=== PATIENT | male | born 1935 | race Caucasian/White ===

== ENCOUNTER 2017-11-13 17:34 | Inpatient (IN) | payer MEDICARE ==
[~2017-11-13] VITALS: Ht 182.9 cm; Wt 149.2 kg
[2017-11-13] MEDS ORDERED: BISACODYL 10 MG SUPP PR PRN (21:00)
[2017-11-13] MEDS ORDERED: POLYETHYLENE GLYCOL 17 GM PACKET PO PRN (21:00)
[2017-11-13] MEDS ORDERED: ONDANSETRON 2MG/ML, 2ML IVPush PRN (21:00)
[2017-11-13] MEDS ORDERED: MAGNESIUM SULFATE PMX 2GM/50ML 50 ML IV ONE (21:30)
[2017-11-13] MEDS ORDERED: PLEASE ENTER HEIGHT AND WEIGHT MC SCH (21:30)
[2017-11-13] MEDS ORDERED: PLEASE ENTER ALLERGIES MC SCH (21:30)
[2017-11-13 21:39] VITALS: BP 97/62
[2017-11-13] MEDS: SODIUM CHLORIDE FLUSH 10ML SYR IVF SCH (22:18)
[2017-11-13] MEDS: HEPARIN 5,000 UNITS/ML, 1ML SQ SCH (22:19)
[2017-11-14] VITALS (7 sets, daily range): BP systolic 84–111; BP diastolic 52–81
[2017-11-14] MEDS: HEPARIN 5,000 UNITS/ML, 1ML SQ SCH ×2 (05:26→13:11)
[2017-11-14] MEDS: CARVEDILOL 6.25 MG TABLET PO SCH ×2 (05:26→10:50)
[2017-11-14 05:42] LABS: CHLORIDE 101 mmol/L (98-107)
[2017-11-14 05:50] LABS: ALANINE AMINOTRANSFERASE 25 U/L (12-78); ALBUMIN 3.1 g/dL (3.4-5.0); ALKALINE PHOSPHATASE 76 U/L (45-117); ANION GAP 7 mmol/L (5-15); BILIRUBIN,TOTAL 2.3 mg/dL (0.2-1.0); CALCIUM 9.8 mg/dL (8.5-10.1); CREATININE 1.51 mg/dL (0.7-1.3); TOTAL PROTEIN 6.8 g/dL (6.4-8.2)
[2017-11-14] MEDS ORDERED: ASPIRIN 325 MG TABLET EC PO SCH (06:00)
[2017-11-14 06:10] LABS: BASOPHILS # (AUTO) 0.03 x10^3/uL (0-0.1); BASOPHILS % (AUTO) 1 % (0-1); EOSINOPHILS # (AUTO) 0.11 x10^3/uL (0-0.4); EOSINOPHILS % (AUTO) 2 % (1-7); LYMPHOCYTES % (AUTO) 18 % (22-44); MD SCAN; MEAN CORPUSCULAR HEMOGLOBIN 35.3 pg (27.5-34.5); MEAN CORPUSCULAR VOLUME 106.8 fL (81-97); MEAN PLATELET VOLUME 13.3 fL (7.4-10.4); MONOCYTES # (AUTO) 0.66 x10^3/uL (0.2-0.8); MONOCYTES % (AUTO) 10 % (2-9); NEUTROPHILS # (AUTO) 4.84 x10^3/uL (1.8-6.8); NEUTROPHILS % (AUTO) 71 % (42-75); PLATELET COUNT 86 x10^3/uL (130-400); RED BLOOD COUNT 3.65 x10^6/uL (4.38-5.82); RED CELL DISTRIBUTION WIDTH 17.4 % (9.4-14.8)
[2017-11-14] MEDS: LISINOPRIL 5 MG TABLET PO SCH (08:20)
[2017-11-14] MEDS: FUROSEMIDE 40 MG/4 ML IV SCH ×2 (08:20→16:50)
[2017-11-14] MEDS: SENNA/DOCUSATE TABLET PO SCH (08:20)
[2017-11-14] MEDS: SODIUM CHLORIDE FLUSH 10ML SYR IVF SCH ×2 (08:47→21:46)
[2017-11-14] MEDS ORDERED: FURO40TA6 PO (10:33)
[2017-11-14] MEDS ORDERED: CARV3.122 PO (10:33)
[2017-11-14] MEDS: INSULIN LISPRO 100 UNITS/ML, PEN SQ-INSULIN SCH ×2 (16:00→21:58)
[2017-11-14] MEDS: APIXABAN 5 MG TABLET PO SCH (21:46)
[2017-11-15] VITALS (8 sets, daily range): BP systolic 79–108; BP diastolic 43–66
[2017-11-15] MEDS: CARVEDILOL 6.25 MG TABLET PO SCH ×2 (05:05→18:27)
[2017-11-15 05:14] LABS: MEAN CORPUSCULAR HEMOGLOBIN 35.6 pg (27.5-34.5); MEAN CORPUSCULAR HGB CONC 33.2 g/dL (33.2-36.2); RED BLOOD COUNT 3.47 x10^6/uL (4.38-5.82); RED CELL DISTRIBUTION WIDTH 17.6 % (9.4-14.8)
[2017-11-15 05:18] LABS: ALANINE AMINOTRANSFERASE 26 U/L (12-78); ALBUMIN 2.9 g/dL (3.4-5.0); ANION GAP 6 mmol/L (5-15); CALCIUM 9.6 mg/dL (8.5-10.1); CHLORIDE 101 mmol/L (98-107); CREATININE 1.58 mg/dL (0.7-1.3)
[2017-11-15 05:34] LABS: HEMOGLOBIN A1C 6.5 % (4.2-6.3)
[2017-11-15 05:45] LABS: ALKALINE PHOSPHATASE 72 U/L (45-117); BILIRUBIN,TOTAL 1.6 mg/dL (0.2-1.0); TOTAL PROTEIN 6.2 g/dL (6.4-8.2)
[2017-11-15 05:59] LABS: BASOPHILS # (AUTO) 0.03 x10^3/uL (0-0.1); BASOPHILS % (AUTO) 1 % (0-1); EOSINOPHILS # (AUTO) 0.21 x10^3/uL (0-0.4); EOSINOPHILS % (AUTO) 4 % (1-7); LYMPHOCYTES # (AUTO) 1.14 x10^3/uL (1-3.4); LYMPHOCYTES % (AUTO) 21 % (22-44); MD SCAN; MEAN PLATELET VOLUME 13.2 fL (7.4-10.4); MONOCYTES # (AUTO) 0.49 x10^3/uL (0.2-0.8); MONOCYTES % (AUTO) 9 % (2-9); NEUTROPHILS # (AUTO) 3.47 x10^3/uL (1.8-6.8); NEUTROPHILS % (AUTO) 65 % (42-75); PLATELET COUNT 85 x10^3/uL (130-400)
[2017-11-15] MEDS: INSULIN LISPRO 100 UNITS/ML, PEN SQ-INSULIN SCH ×4 (07:56→21:05)
[2017-11-15] MEDS: SENNA/DOCUSATE TABLET PO SCH (08:47)
[2017-11-15] MEDS: APIXABAN 5 MG TABLET PO SCH ×2 (08:50→21:06)
[2017-11-15] MEDS: LISINOPRIL 5 MG TABLET PO SCH (08:51)
[2017-11-15] MEDS: THIAMINE 100MG TABLET PO SCH (08:52)
[2017-11-15] MEDS: FUROSEMIDE 40 MG/4 ML IV SCH (08:53)
[2017-11-15] MEDS: SODIUM CHLORIDE FLUSH 10ML SYR IVF SCH ×2 (09:00→19:49)
[2017-11-15] MEDS ORDERED: PHARMACY MAY ADJ FOR RENAL FX MC PRN (15:30)
[2017-11-15] MEDS ORDERED: SODIUM CHLORIDE 0.9%, 250ML IVBOLUS ONE (15:30)
[2017-11-15] MEDS ORDERED: CALCIUM CARBONATE 500 MG TAB.CHEW PO PRN (15:30)
[2017-11-15] MEDS: FUROSEMIDE 40 MG TABLET PO SCH (16:49)
[2017-11-16] VITALS (9 sets, daily range): BP systolic 80–103; BP diastolic 50–70
[2017-11-16 02:19] LABS: MICROSCOPIC INDICATED
[2017-11-16 02:27] LABS: CULTURE INDICATED? NO
[2017-11-16 03:49] LABS: ALANINE AMINOTRANSFERASE 29 U/L (12-78); ALBUMIN 2.7 g/dL (3.4-5.0); ANION GAP 7 mmol/L (5-15); CALCIUM 9.6 mg/dL (8.5-10.1); CHLORIDE 101 mmol/L (98-107); CREATININE 1.49 mg/dL (0.7-1.3)
[2017-11-16 03:50] LABS: MEAN CORPUSCULAR HEMOGLOBIN 36.4 pg (27.5-34.5); MEAN CORPUSCULAR HGB CONC 33.6 g/dL (33.2-36.2); MEAN CORPUSCULAR VOLUME 108.6 fL (81-97); MEAN PLATELET VOLUME 13.4 fL (7.4-10.4); PLATELET COUNT 94 x10^3/uL (130-400); RED CELL DISTRIBUTION WIDTH 17.7 % (9.4-14.8)
[2017-11-16 03:52] LABS: ALKALINE PHOSPHATASE 82 U/L (45-117); BILIRUBIN,TOTAL 1.3 mg/dL (0.2-1.0); TOTAL PROTEIN 6.2 g/dL (6.4-8.2)
[2017-11-16 04:15] LABS: BASOPHILS # (AUTO) 0.05 x10^3/uL (0-0.1); BASOPHILS % (AUTO) 1 % (0-1); EOSINOPHILS # (AUTO) 0.24 x10^3/uL (0-0.4); EOSINOPHILS % (AUTO) 4 % (1-7); LYMPHOCYTES # (AUTO) 1.13 x10^3/uL (1-3.4); LYMPHOCYTES % (AUTO) 18 % (22-44); MD SCAN; MONOCYTES # (AUTO) 0.58 x10^3/uL (0.2-0.8); MONOCYTES % (AUTO) 9 % (2-9); NEUTROPHILS # (AUTO) 4.41 x10^3/uL (1.8-6.8); NEUTROPHILS % (AUTO) 69 % (42-75)
[2017-11-16] MEDS: CARVEDILOL 6.25 MG TABLET PO SCH ×2 (05:59→17:50)
[2017-11-16] MEDS: INSULIN LISPRO 100 UNITS/ML, PEN SQ-INSULIN SCH ×4 (07:24→21:19)
[2017-11-16] MEDS: FUROSEMIDE 40 MG TABLET PO SCH (07:56)
[2017-11-16] MEDS ORDERED: FUROSEMIDE 20 MG TABLET ONE (07:59)
[2017-11-16] MEDS ORDERED: FUROSEMIDE 20 MG TABLET PO ONE (08:00)
[2017-11-16] MEDS: SENNA/DOCUSATE TABLET PO SCH (08:02)
[2017-11-16] MEDS: APIXABAN 5 MG TABLET PO SCH ×2 (08:05→21:16)
[2017-11-16] MEDS: PANTOPRAZOLE 20MG TABLET PO SCH (08:07)
[2017-11-16] MEDS: LISINOPRIL 5 MG TABLET PO SCH (08:08)
[2017-11-16] MEDS: THIAMINE 100MG TABLET PO SCH (08:12)
[2017-11-16] MEDS: SODIUM CHLORIDE FLUSH 10ML SYR IVF SCH ×2 (08:13→21:19)
[2017-11-16] MEDS ORDERED: BISACODYL 10 MG SUPP PR PRN (10:00)
[2017-11-16] MEDS: TAMSULOSIN 0.4 MG CAP.ER.24H PO SCH (11:31)
[2017-11-16] MEDS: POLYETHYLENE GLYCOL 17 GM PACKET PO SCH (11:31)
[2017-11-16] MEDS: ACETAMINOPHEN 325 MG TABLET PO PRN (15:37)
[2017-11-16 15:48] LABS: BILIRUBIN, DIRECT 0.7 mg/dL (0.1-0.2)
[2017-11-16 15:57] LABS: BILIRUBIN,INDIRECT 0.8 mg/dL (0.0-2.0); BILIRUBIN,TOTAL 1.5 mg/dL (0.2-1.0); THYROID STIMULATING HORMONE 4.48 mIU/L (0.358-3.740)
[2017-11-16] MEDS: FUROSEMIDE 20 MG TABLET PO SCH (17:50)
[2017-11-17 00:33] VITALS: BP 97/58
[2017-11-17 05:09] VITALS: BP 109/63
[2017-11-17] MEDS: CARVEDILOL 6.25 MG TABLET PO SCH ×2 (05:14→18:29)
[2017-11-17 05:45] LABS: CHLORIDE 101 mmol/L (98-107)
[2017-11-17 05:51] LABS: ALANINE AMINOTRANSFERASE 31 U/L (12-78); ALBUMIN 2.7 g/dL (3.4-5.0); ALKALINE PHOSPHATASE 72 U/L (45-117); ANION GAP 7 mmol/L (5-15); BILIRUBIN,TOTAL 1.8 mg/dL (0.2-1.0); CALCIUM 9.3 mg/dL (8.5-10.1); CREATININE 1.15 mg/dL (0.7-1.3); TOTAL PROTEIN 6.1 g/dL (6.4-8.2)
[2017-11-17 06:42] LABS: BASOPHILS # (AUTO) 0.03 x10^3/uL (0-0.1); BASOPHILS % (AUTO) 1 % (0-1); EOSINOPHILS # (AUTO) 0.15 x10^3/uL (0-0.4); EOSINOPHILS % (AUTO) 3 % (1-7); LYMPHOCYTES # (AUTO) 1.17 x10^3/uL (1-3.4); LYMPHOCYTES % (AUTO) 20 % (22-44); MD SCAN; MEAN CORPUSCULAR HEMOGLOBIN 36.3 pg (27.5-34.5); MEAN CORPUSCULAR HGB CONC 33.8 g/dL (33.2-36.2); MEAN CORPUSCULAR VOLUME 107.4 fL (81-97); MEAN PLATELET VOLUME 13.4 fL (7.4-10.4); MONOCYTES # (AUTO) 0.51 x10^3/uL (0.2-0.8); MONOCYTES % (AUTO) 9 % (2-9); NEUTROPHILS # (AUTO) 3.99 x10^3/uL (1.8-6.8); NEUTROPHILS % (AUTO) 68 % (42-75); PLATELET COUNT 87 x10^3/uL (130-400); RED BLOOD COUNT 3.45 x10^6/uL (4.38-5.82)
[2017-11-17] MEDS: INSULIN LISPRO 100 UNITS/ML, PEN SQ-INSULIN SCH ×4 (07:00→20:42)
[2017-11-17] MEDS ORDERED: FUROSEMIDE 20 MG TABLET PO SCH (07:30)
[2017-11-17] MEDS: POLYETHYLENE GLYCOL 17 GM PACKET PO SCH (09:00)
[2017-11-17] MEDS: SODIUM CHLORIDE FLUSH 10ML SYR IVF SCH ×2 (09:00→20:42)
[2017-11-17] MEDS: SENNA/DOCUSATE TABLET PO SCH (09:00)
[2017-11-17 09:02] LABS: INTERNATIONAL NORMALIZED RATIO 1.16 (0.93-1.1)
[2017-11-17 09:06] VITALS: BP 95/62
[2017-11-17 09:22] LABS: FOLATE LEVEL 11.6 ng/mL (3.1-17.5); FREE T4 (FREE THYROXINE) 1.07 ng/dL (0.76-1.46)
[2017-11-17] MEDS: TAMSULOSIN 0.4 MG CAP.ER.24H PO SCH (09:50)
[2017-11-17] MEDS: APIXABAN 5 MG TABLET PO SCH ×2 (09:50→20:42)
[2017-11-17] MEDS: PANTOPRAZOLE 20MG TABLET PO SCH (09:50)
[2017-11-17] MEDS: THIAMINE 100MG TABLET PO SCH (09:50)
[2017-11-17] MEDS: LISINOPRIL 5 MG TABLET PO SCH (09:50)
[2017-11-17] MEDS: FUROSEMIDE 20 MG TABLET PO SCH ×2 (09:55→18:29)
[2017-11-17 12:26] VITALS: BP 96/64
[2017-11-17 19:22] VITALS: BP 98/66
[2017-11-18 01:25] VITALS: BP 99/68
[2017-11-18] MEDS: CARVEDILOL 6.25 MG TABLET PO SCH ×2 (05:27→16:23)
[2017-11-18 05:38] LABS: ALANINE AMINOTRANSFERASE 33 U/L (12-78); ALBUMIN 2.6 g/dL (3.4-5.0); ANION GAP 4 mmol/L (5-15); CALCIUM 9.5 mg/dL (8.5-10.1); CHLORIDE 103 mmol/L (98-107); CREATININE 1.08 mg/dL (0.7-1.3)
[2017-11-18 05:40] LABS: ALKALINE PHOSPHATASE 75 U/L (45-117); BILIRUBIN,TOTAL 1.4 mg/dL (0.2-1.0)
[2017-11-18 06:19] LABS: BASOPHILS # (AUTO) 0.03 x10^3/uL (0-0.1); BASOPHILS % (AUTO) 1 % (0-1); EOSINOPHILS # (AUTO) 0.17 x10^3/uL (0-0.4); EOSINOPHILS % (AUTO) 3 % (1-7); LYMPHOCYTES # (AUTO) 0.98 x10^3/uL (1-3.4); LYMPHOCYTES % (AUTO) 19 % (22-44); MD SCAN; MEAN CORPUSCULAR HEMOGLOBIN 35.6 pg (27.5-34.5); MEAN CORPUSCULAR VOLUME 107.9 fL (81-97); MONOCYTES # (AUTO) 0.47 x10^3/uL (0.2-0.8); MONOCYTES % (AUTO) 9 % (2-9); NEUTROPHILS # (AUTO) 3.56 x10^3/uL (1.8-6.8); NEUTROPHILS % (AUTO) 68 % (42-75); PLATELET COUNT 76 x10^3/uL (130-400); RED BLOOD COUNT 3.36 x10^6/uL (4.38-5.82); RED CELL DISTRIBUTION WIDTH 17.2 % (9.4-14.8)
[2017-11-18 06:50] VITALS: BP 89/49
[2017-11-18] MEDS: INSULIN LISPRO 100 UNITS/ML, PEN SQ-INSULIN SCH ×4 (07:00→21:24)
[2017-11-18] MEDS: FUROSEMIDE 20 MG TABLET PO SCH (07:30)
[2017-11-18] MEDS ORDERED: SODIUM CHLORIDE 0.9%, 250ML IVBOLUS ONE (07:30)
[2017-11-18] MEDS: SENNA/DOCUSATE TABLET PO SCH (08:22)
[2017-11-18] MEDS: LISINOPRIL 5 MG TABLET PO SCH (08:22)
[2017-11-18] MEDS: SODIUM CHLORIDE FLUSH 10ML SYR IVF SCH ×2 (08:22→21:23)
[2017-11-18] MEDS: TAMSULOSIN 0.4 MG CAP.ER.24H PO SCH (08:22)
[2017-11-18] MEDS: APIXABAN 5 MG TABLET PO SCH (08:22)
[2017-11-18] MEDS: THIAMINE 100MG TABLET PO SCH (08:22)
[2017-11-18] MEDS: POLYETHYLENE GLYCOL 17 GM PACKET PO SCH (08:22)
[2017-11-18] MEDS: PANTOPRAZOLE 20MG TABLET PO SCH (08:22)
[2017-11-18 08:30] VITALS: BP 65/51
[2017-11-18 09:07] LABS: TROPONIN I 0.016 ng/mL (0.000-0.045)
[2017-11-18] MEDS ORDERED: DOBUTAMINE 250 MG in SODIUM CHLORIDE 0.9% 230 ML IV SCH (09:30)
[2017-11-18] MEDS ORDERED: MAGNESIUM SULFATE 1 GM in SODIUM CHLORIDE 0.9% 50 ML IV ONE (10:00)
[2017-11-18] MEDS: NOREPINEPHRINE 4 MG in SODIUM CHLORIDE 0.9% 246 ML IV PRN (21:34)
[2017-11-19 04:32] LABS: ALANINE AMINOTRANSFERASE 37 U/L (12-78); ALBUMIN 2.7 g/dL (3.4-5.0); ANION GAP 5 mmol/L (5-15); CALCIUM 9.4 mg/dL (8.5-10.1); CHLORIDE 103 mmol/L (98-107)
[2017-11-19 04:35] LABS: ALKALINE PHOSPHATASE 89 U/L (45-117); BILIRUBIN,TOTAL 1.6 mg/dL (0.2-1.0); CREATININE 0.98 mg/dL (0.7-1.3); TOTAL PROTEIN 6.4 g/dL (6.4-8.2)
[2017-11-19 05:42] LABS: MEAN CORPUSCULAR HEMOGLOBIN 34.8 pg (27.5-34.5); MEAN CORPUSCULAR HGB CONC 32.4 g/dL (33.2-36.2); MEAN CORPUSCULAR VOLUME 107.4 fL (81-97); PLATELET COUNT 95 x10^3/uL (130-400); RED BLOOD COUNT 3.64 x10^6/uL (4.38-5.82); RED CELL DISTRIBUTION WIDTH 17.5 % (9.4-14.8)
[2017-11-19 05:43] LABS: BASOPHILS # (AUTO) 0.04 x10^3/uL (0-0.1); BASOPHILS % (AUTO) 1 % (0-1); EOSINOPHILS # (AUTO) 0.15 x10^3/uL (0-0.4); EOSINOPHILS % (AUTO) 2 % (1-7); LYMPHOCYTES # (AUTO) 0.98 x10^3/uL (1-3.4); LYMPHOCYTES % (AUTO) 15 % (22-44); MD SCAN; MONOCYTES # (AUTO) 0.53 x10^3/uL (0.2-0.8); MONOCYTES % (AUTO) 8 % (2-9); NEUTROPHILS # (AUTO) 4.94 x10^3/uL (1.8-6.8); NEUTROPHILS % (AUTO) 75 % (42-75)
[2017-11-19] MEDS: CARVEDILOL 6.25 MG TABLET PO SCH (06:00)
[2017-11-19] MEDS: INSULIN LISPRO 100 UNITS/ML, PEN SQ-INSULIN SCH ×4 (07:00→21:18)
[2017-11-19] MEDS: PANTOPRAZOLE 20MG TABLET PO SCH (07:43)
[2017-11-19] MEDS: TAMSULOSIN 0.4 MG CAP.ER.24H PO SCH (07:43)
[2017-11-19] MEDS: FUROSEMIDE 100 MG in SODIUM CHLORIDE 0.9% 90 ML IV SCH (07:43)
[2017-11-19] MEDS: THIAMINE 100MG TABLET PO SCH (07:45)
[2017-11-19] MEDS: SENNA/DOCUSATE TABLET PO SCH (08:47)
[2017-11-19] MEDS: POLYETHYLENE GLYCOL 17 GM PACKET PO SCH (08:47)
[2017-11-19] MEDS: NOREPINEPHRINE 4 MG in SODIUM CHLORIDE 0.9% 246 ML IV PRN (11:58)
[2017-11-19] MEDS: SODIUM CHLORIDE FLUSH 10ML SYR IVF SCH ×2 (12:17→21:00)
[2017-11-20] MEDS: FUROSEMIDE 100 MG in SODIUM CHLORIDE 0.9% 90 ML IV SCH ×2 (04:56→20:28)
[2017-11-20 05:02] LABS: ANION GAP 5 mmol/L (5-15); CALCIUM 9.3 mg/dL (8.5-10.1); CHLORIDE 103 mmol/L (98-107)
[2017-11-20 05:04] LABS: CREATININE 1.09 mg/dL (0.7-1.3)
[2017-11-20] MEDS: INSULIN LISPRO 100 UNITS/ML, PEN SQ-INSULIN SCH ×4 (07:00→21:17)
[2017-11-20] MEDS: TAMSULOSIN 0.4 MG CAP.ER.24H PO SCH (08:46)
[2017-11-20] MEDS: THIAMINE 100MG TABLET PO SCH (08:46)
[2017-11-20] MEDS: PANTOPRAZOLE 20MG TABLET PO SCH (08:46)
[2017-11-20] MEDS: SENNA/DOCUSATE TABLET PO SCH (08:46)
[2017-11-20] MEDS: POLYETHYLENE GLYCOL 17 GM PACKET PO SCH (08:46)
[2017-11-20] MEDS: SODIUM CHLORIDE FLUSH 10ML SYR IVF SCH ×2 (08:47→21:00)
[2017-11-20] MEDS ORDERED: HEPARIN 5,000 UNITS/ML, 1ML IV PRN (10:30)
[2017-11-20] MEDS ORDERED: HEPARIN 5,000 UNITS/ML, 1ML IV ONE (10:30)
[2017-11-20] MEDS: HEPARIN 25,000 UNITS/500ML PMX 500 ML IV PRN (17:07)
[2017-11-20] MEDS ORDERED: SODIUM CHLORIDE 0.9%, 250ML IVBOLUS ONE (23:30)
[2017-11-21 04:26] LABS: MEAN CORPUSCULAR HGB CONC 33.5 g/dL (33.2-36.2); MEAN CORPUSCULAR VOLUME 107.4 fL (81-97); MEAN PLATELET VOLUME 11.9 fL (7.4-10.4); PLATELET COUNT 76 x10^3/uL (130-400); RED BLOOD COUNT 3.45 x10^6/uL (4.38-5.82); RED CELL DISTRIBUTION WIDTH 17.2 % (9.4-14.8)
[2017-11-21 04:31] LABS: ALANINE AMINOTRANSFERASE 37 U/L (12-78); ALBUMIN 2.7 g/dL (3.4-5.0); ANION GAP 3 mmol/L (5-15); CALCIUM 9.5 mg/dL (8.5-10.1); CHLORIDE 103 mmol/L (98-107); CREATININE 1.13 mg/dL (0.7-1.3)
[2017-11-21 04:34] LABS: ALKALINE PHOSPHATASE 91 U/L (45-117); BILIRUBIN,TOTAL 1.5 mg/dL (0.2-1.0); TOTAL PROTEIN 6.4 g/dL (6.4-8.2)
[2017-11-21 04:50] LABS: BASOPHILS # (AUTO) 0.05 x10^3/uL (0-0.1); BASOPHILS % (AUTO) 1 % (0-1); EOSINOPHILS # (AUTO) 0.16 x10^3/uL (0-0.4); EOSINOPHILS % (AUTO) 4 % (1-7); LYMPHOCYTES # (AUTO) 1.25 x10^3/uL (1-3.4); LYMPHOCYTES % (AUTO) 29 % (22-44); MD SCAN; MONOCYTES # (AUTO) 0.52 x10^3/uL (0.2-0.8); MONOCYTES % (AUTO) 12 % (2-9); NEUTROPHILS # (AUTO) 2.28 x10^3/uL (1.8-6.8); NEUTROPHILS % (AUTO) 54 % (42-75)
[2017-11-21] MEDS: INSULIN LISPRO 100 UNITS/ML, PEN SQ-INSULIN SCH ×4 (07:00→21:00)
[2017-11-21] MEDS: THIAMINE 100MG TABLET PO SCH (08:52)
[2017-11-21] MEDS: TAMSULOSIN 0.4 MG CAP.ER.24H PO SCH (08:52)
[2017-11-21] MEDS: PANTOPRAZOLE 20MG TABLET PO SCH (08:52)
[2017-11-21] MEDS: SODIUM CHLORIDE FLUSH 10ML SYR IVF SCH ×2 (08:54→21:24)
[2017-11-21] MEDS: POLYETHYLENE GLYCOL 17 GM PACKET PO SCH (09:00)
[2017-11-21] MEDS: SENNA/DOCUSATE TABLET PO SCH (09:00)
[2017-11-21] MEDS: FUROSEMIDE 20 MG/2 ML IV SCH ×2 (10:37→17:24)
[2017-11-21] MEDS: HEPARIN 25,000 UNITS/500ML PMX 500 ML IV PRN (14:33)
[2017-11-22 05:04] LABS: ANION GAP 6 mmol/L (5-15); CALCIUM 9.8 mg/dL (8.5-10.1); CHLORIDE 100 mmol/L (98-107); CREATININE 1.29 mg/dL (0.7-1.3)
[2017-11-22] MEDS: INSULIN LISPRO 100 UNITS/ML, PEN SQ-INSULIN SCH ×4 (07:00→21:00)
[2017-11-22] MEDS ORDERED: DIGOXIN 0.25 MG/ML, 2ML IVPush ONE (08:30)
[2017-11-22] MEDS ORDERED: DIGOXIN 0.25 MG/ML, 2ML ONE (08:33)
[2017-11-22] MEDS: POLYETHYLENE GLYCOL 17 GM PACKET PO SCH (09:00)
[2017-11-22] MEDS: FUROSEMIDE 20 MG/2 ML IV SCH ×2 (09:06→18:35)
[2017-11-22] MEDS: THIAMINE 100MG TABLET PO SCH (09:07)
[2017-11-22] MEDS: PANTOPRAZOLE 20MG TABLET PO SCH (09:07)
[2017-11-22] MEDS: SENNA/DOCUSATE TABLET PO SCH (09:07)
[2017-11-22] MEDS: TAMSULOSIN 0.4 MG CAP.ER.24H PO SCH (09:07)
[2017-11-22] MEDS: SODIUM CHLORIDE FLUSH 10ML SYR IVF SCH ×2 (09:08→21:26)
[2017-11-22 16:32] VITALS: BP 95/60
[2017-11-23 02:30] VITALS: BP 88/61
[2017-11-23 03:39] LABS: ANION GAP 4 mmol/L (5-15); CALCIUM 9.3 mg/dL (8.5-10.1); CHLORIDE 101 mmol/L (98-107); CREATININE 1.17 mg/dL (0.7-1.3)
[2017-11-23] MEDS: INSULIN LISPRO 100 UNITS/ML, PEN SQ-INSULIN SCH ×4 (07:00→21:00)
[2017-11-23] MEDS: SODIUM CHLORIDE FLUSH 10ML SYR IVF SCH ×2 (07:54→21:15)
[2017-11-23] MEDS: PANTOPRAZOLE 20MG TABLET PO SCH (07:54)
[2017-11-23] MEDS: POLYETHYLENE GLYCOL 17 GM PACKET PO SCH (07:54)
[2017-11-23] MEDS: FUROSEMIDE 20 MG/2 ML IV SCH ×2 (07:54→17:48)
[2017-11-23 07:57] VITALS: BP 115/72
[2017-11-23] MEDS: THIAMINE 100MG TABLET PO SCH (08:02)
[2017-11-23] MEDS: SENNA/DOCUSATE TABLET PO SCH (08:02)
[2017-11-23] MEDS: TAMSULOSIN 0.4 MG CAP.ER.24H PO SCH (08:02)
[2017-11-23 13:20] VITALS: BP 93/59
[2017-11-23 14:31] VITALS: BP 104/66
[2017-11-23 20:07] VITALS: BP 102/69
[2017-11-24 02:32] VITALS: BP 105/66
[2017-11-24 06:00] LABS: ALBUMIN 2.7 g/dL (3.4-5.0); ANION GAP 8 mmol/L (5-15); CALCIUM 9.7 mg/dL (8.5-10.1); CHLORIDE 102 mmol/L (98-107)
[2017-11-24 06:04] LABS: ALANINE AMINOTRANSFERASE 36 U/L (12-78); ALKALINE PHOSPHATASE 84 U/L (45-117); BILIRUBIN,TOTAL 1.7 mg/dL (0.2-1.0); CREATININE 1.07 mg/dL (0.7-1.3); TOTAL PROTEIN 6.3 g/dL (6.4-8.2)
[2017-11-24 06:58] LABS: BASOPHILS # (AUTO) 0.03 x10^3/uL (0-0.1); BASOPHILS % (AUTO) 1 % (0-1); EOSINOPHILS # (AUTO) 0.15 x10^3/uL (0-0.4); EOSINOPHILS % (AUTO) 4 % (1-7); LYMPHOCYTES # (AUTO) 1.04 x10^3/uL (1-3.4); LYMPHOCYTES % (AUTO) 25 % (22-44); MD SCAN; MEAN CORPUSCULAR HEMOGLOBIN 35.1 pg (27.5-34.5); MEAN CORPUSCULAR HGB CONC 32.7 g/dL (33.2-36.2); MEAN CORPUSCULAR VOLUME 107.3 fL (81-97); MEAN PLATELET VOLUME 11.3 fL (7.4-10.4); MONOCYTES # (AUTO) 0.46 x10^3/uL (0.2-0.8); MONOCYTES % (AUTO) 11 % (2-9); NEUTROPHILS # (AUTO) 2.51 x10^3/uL (1.8-6.8); NEUTROPHILS % (AUTO) 60 % (42-75); RED CELL DISTRIBUTION WIDTH 17.3 % (9.4-14.8)
[2017-11-24 07:00] LABS: PLATELET COUNT 47 x10^3/uL (130-400)
[2017-11-24] MEDS: INSULIN LISPRO 100 UNITS/ML, PEN SQ-INSULIN SCH ×4 (07:00→21:00)
[2017-11-24] MEDS: FUROSEMIDE 20 MG/2 ML IV SCH ×2 (08:12→16:53)
[2017-11-24] MEDS: PANTOPRAZOLE 20MG TABLET PO SCH (08:13)
[2017-11-24] MEDS: SODIUM CHLORIDE FLUSH 10ML SYR IVF SCH ×2 (08:13→21:40)
[2017-11-24] MEDS: TAMSULOSIN 0.4 MG CAP.ER.24H PO SCH (08:13)
[2017-11-24] MEDS: THIAMINE 100MG TABLET PO SCH (08:13)
[2017-11-24] MEDS: POLYETHYLENE GLYCOL 17 GM PACKET PO SCH (08:13)
[2017-11-24] MEDS: SENNA/DOCUSATE TABLET PO SCH (08:13)
[2017-11-24 08:14] VITALS: BP 116/75
[2017-11-24 09:23] LABS: HIT RESULT NEGATIVE (NEGATIVE)
[2017-11-24 14:54] VITALS: BP 112/71
[2017-11-24 19:01] VITALS: BP 115/76
[2017-11-24] MEDS: ACETAMINOPHEN 325 MG TABLET PO PRN (21:40)
[2017-11-25 03:35] VITALS: BP 105/65
[2017-11-25 06:51] LABS: MEAN CORPUSCULAR HEMOGLOBIN 35.5 pg (27.5-34.5); MEAN CORPUSCULAR VOLUME 107.7 fL (81-97); RED BLOOD COUNT 3.25 x10^6/uL (4.38-5.82); RED CELL DISTRIBUTION WIDTH 17.2 % (9.4-14.8)
[2017-11-25 07:00] LABS: ANION GAP 5 mmol/L (5-15); CALCIUM 9.6 mg/dL (8.5-10.1); CHLORIDE 103 mmol/L (98-107); CREATININE 1.21 mg/dL (0.7-1.3)
[2017-11-25] MEDS: INSULIN LISPRO 100 UNITS/ML, PEN SQ-INSULIN SCH ×4 (07:00→21:00)
[2017-11-25 07:15] VITALS: BP 105/75
[2017-11-25 07:21] LABS: BASOPHILS # (AUTO) 0.03 x10^3/uL (0-0.1); BASOPHILS % (AUTO) 1 % (0-1); EOSINOPHILS # (AUTO) 0.16 x10^3/uL (0-0.4); EOSINOPHILS % (AUTO) 4 % (1-7); LYMPHOCYTES # (AUTO) 0.94 x10^3/uL (1-3.4); LYMPHOCYTES % (AUTO) 21 % (22-44); MD MORPH REVIEW ONLY; MEAN PLATELET VOLUME 11.5 fL (7.4-10.4); MONOCYTES # (AUTO) 0.37 x10^3/uL (0.2-0.8); MONOCYTES % (AUTO) 8 % (2-9); NEUTROPHILS # (AUTO) 2.95 x10^3/uL (1.8-6.8); NEUTROPHILS % (AUTO) 66 % (42-75); PLATELET COUNT 52 x10^3/uL (130-400)
[2017-11-25 07:24] LABS: <PLATELET ESTIMATE> DECREASED; <PLT MORPHOLOGY> NORMAL PLT MORPH; ANISOCYTOSIS 1+; OVALOCYTES 1+
[2017-11-25] MEDS: POLYETHYLENE GLYCOL 17 GM PACKET PO SCH (09:00)
[2017-11-25] MEDS: PANTOPRAZOLE 20MG TABLET PO SCH (09:09)
[2017-11-25] MEDS: TAMSULOSIN 0.4 MG CAP.ER.24H PO SCH (09:09)
[2017-11-25] MEDS: THIAMINE 100MG TABLET PO SCH (09:09)
[2017-11-25] MEDS: SODIUM CHLORIDE FLUSH 10ML SYR IVF SCH ×2 (09:09→21:31)
[2017-11-25] MEDS: SENNA/DOCUSATE TABLET PO SCH (09:09)
[2017-11-25] MEDS: FUROSEMIDE 20 MG/2 ML IV SCH (09:09)
[2017-11-25 12:46] VITALS: BP 123/69
[2017-11-25] MEDS: LACTOBACILLUS CHEW TABLET PO SCH ×2 (16:25→21:32)
[2017-11-25 17:30] VITALS: BP 99/70
[2017-11-25] MEDS: FUROSEMIDE 20 MG TABLET PO SCH (18:03)
[2017-11-25] MEDS: CARVEDILOL 3.125 MG TABLET PO SCH (18:04)
[2017-11-25 19:19] VITALS: BP 123/69
[2017-11-26 02:30] VITALS: BP 117/85
[2017-11-26] MEDS: CARVEDILOL 3.125 MG TABLET PO SCH ×2 (05:24→17:42)
[2017-11-26 06:06] LABS: % IRON SATURATION 24 % (20-55); IRON LEVEL 63 mcg/dL (65-175); TOTAL IRON BINDING CAPACITY 258 mcg/dL (250-450)
[2017-11-26 06:57] VITALS: BP 108/72
[2017-11-26] MEDS: INSULIN LISPRO 100 UNITS/ML, PEN SQ-INSULIN SCH ×4 (07:00→20:10)
[2017-11-26] MEDS: POLYETHYLENE GLYCOL 17 GM PACKET PO SCH (07:44)
[2017-11-26] MEDS: SODIUM CHLORIDE FLUSH 10ML SYR IVF SCH ×2 (09:00→20:08)
[2017-11-26] MEDS: SENNA/DOCUSATE TABLET PO SCH (09:00)
[2017-11-26] MEDS: THIAMINE 100MG TABLET PO SCH (09:54)
[2017-11-26] MEDS: LACTOBACILLUS CHEW TABLET PO SCH ×3 (09:54→20:07)
[2017-11-26] MEDS: FUROSEMIDE 20 MG TABLET PO SCH ×2 (09:54→17:56)
[2017-11-26] MEDS: ACETAMINOPHEN 325 MG TABLET PO PRN (09:54)
[2017-11-26] MEDS: PANTOPRAZOLE 20MG TABLET PO SCH (09:54)
[2017-11-26] MEDS: TAMSULOSIN 0.4 MG CAP.ER.24H PO SCH (09:54)
[2017-11-26] MEDS: ACETYLCYSTEINE 600 MG CAPSULE PO SCH ×2 (11:37→20:07)
[2017-11-26 14:05] VITALS: BP 114/71
[2017-11-26] MEDS ORDERED: HALOPERIDOL 5 MG/ML IV PRN (16:30)
[2017-11-26 19:46] VITALS: BP 120/71
[2017-11-27 01:20] VITALS: BP 112/66
[2017-11-27 05:44] LABS: ANION GAP 7 mmol/L (5-15); CALCIUM 9.9 mg/dL (8.5-10.1); CHLORIDE 102 mmol/L (98-107)
[2017-11-27 05:47] LABS: CREATININE 1.05 mg/dL (0.7-1.3)
[2017-11-27 05:49] LABS: MICROSCOPIC INDICATED
[2017-11-27 05:54] LABS: CULTURE INDICATED? NO
[2017-11-27] MEDS: CARVEDILOL 3.125 MG TABLET PO SCH ×2 (06:20→17:22)
[2017-11-27 06:40] LABS: BASOPHILS # (AUTO) 0.05 x10^3/uL (0-0.1); BASOPHILS % (AUTO) 1 % (0-1); EOSINOPHILS # (AUTO) 0.16 x10^3/uL (0-0.4); EOSINOPHILS % (AUTO) 3 % (1-7); LYMPHOCYTES # (AUTO) 0.88 x10^3/uL (1-3.4); LYMPHOCYTES % (AUTO) 16 % (22-44); MD SCAN; MEAN CORPUSCULAR HEMOGLOBIN 35.7 pg (27.5-34.5); MEAN CORPUSCULAR HGB CONC 33.1 g/dL (33.2-36.2); MEAN CORPUSCULAR VOLUME 107.9 fL (81-97); MEAN PLATELET VOLUME 12.4 fL (7.4-10.4); MONOCYTES # (AUTO) 0.58 x10^3/uL (0.2-0.8); MONOCYTES % (AUTO) 11 % (2-9); NEUTROPHILS # (AUTO) 3.79 x10^3/uL (1.8-6.8); NEUTROPHILS % (AUTO) 70 % (42-75); PLATELET COUNT 54 x10^3/uL (130-400); RED BLOOD COUNT 3.23 x10^6/uL (4.38-5.82); RED CELL DISTRIBUTION WIDTH 17.1 % (9.4-14.8)
[2017-11-27] MEDS: INSULIN LISPRO 100 UNITS/ML, PEN SQ-INSULIN SCH ×4 (07:11→20:23)
[2017-11-27 07:46] VITALS: BP 92/53
[2017-11-27] MEDS: FUROSEMIDE 20 MG TABLET PO SCH ×2 (08:17→17:22)
[2017-11-27] MEDS: TAMSULOSIN 0.4 MG CAP.ER.24H PO SCH (08:17)
[2017-11-27] MEDS: THIAMINE 100MG TABLET PO SCH (08:17)
[2017-11-27] MEDS: ACETYLCYSTEINE 600 MG CAPSULE PO SCH ×2 (08:17→20:22)
[2017-11-27] MEDS: LACTOBACILLUS CHEW TABLET PO SCH ×3 (08:17→20:22)
[2017-11-27] MEDS: SODIUM CHLORIDE FLUSH 10ML SYR IVF SCH ×2 (08:18→20:23)
[2017-11-27] MEDS: POLYETHYLENE GLYCOL 17 GM PACKET PO SCH (08:18)
[2017-11-27] MEDS: PANTOPRAZOLE 20MG TABLET PO SCH (08:18)
[2017-11-27] MEDS: SENNA/DOCUSATE TABLET PO SCH (08:18)
[2017-11-27 10:34] LABS: ALBUMIN 2.7 g/dL (3.4-5.0); ANION GAP 6 mmol/L (5-15); CALCIUM 9.8 mg/dL (8.5-10.1); CHLORIDE 102 mmol/L (98-107)
[2017-11-27 10:35] LABS: CREATININE 1.07 mg/dL (0.7-1.3)
[2017-11-27 15:19] VITALS: BP 114/85
[2017-11-27 17:21] VITALS: BP 122/87
[2017-11-27 18:54] VITALS: BP 105/68
[2017-11-28 01:02] VITALS: BP 112/70
[2017-11-28] MEDS: ACETAMINOPHEN 325 MG TABLET PO PRN (04:42)
[2017-11-28] MEDS: CARVEDILOL 3.125 MG TABLET PO SCH ×2 (06:01→17:31)
[2017-11-28] MEDS: INSULIN LISPRO 100 UNITS/ML, PEN SQ-INSULIN SCH ×4 (07:00→21:00)
[2017-11-28 07:17] VITALS: BP 116/74
[2017-11-28] MEDS: PANTOPRAZOLE 20MG TABLET PO SCH (08:14)
[2017-11-28] MEDS: TAMSULOSIN 0.4 MG CAP.ER.24H PO SCH (08:14)
[2017-11-28] MEDS: FUROSEMIDE 20 MG TABLET PO SCH ×2 (08:14→17:31)
[2017-11-28] MEDS: THIAMINE 100MG TABLET PO SCH (08:15)
[2017-11-28] MEDS: SENNA/DOCUSATE TABLET PO SCH (08:16)
[2017-11-28] MEDS: POLYETHYLENE GLYCOL 17 GM PACKET PO SCH (08:16)
[2017-11-28] MEDS: SODIUM CHLORIDE FLUSH 10ML SYR IVF SCH ×2 (08:16→21:46)
[2017-11-28] MEDS: ACETYLCYSTEINE 600 MG CAPSULE PO SCH ×2 (08:16→21:46)
[2017-11-28] MEDS: LACTOBACILLUS CHEW TABLET PO SCH ×3 (08:16→21:46)
[2017-11-28] MEDS ORDERED: ACET325T14 PO (13:18)
[2017-11-28] MEDS ORDERED: CALC200T24 PO (13:18)
[2017-11-28] MEDS ORDERED: THIA100T67 PO (13:18)
[2017-11-28] MEDS ORDERED: FURO20TA3 PO (13:18)
[2017-11-28] MEDS ORDERED: TAMS-11 PO (13:18)
[2017-11-28] MEDS ORDERED: ACID1TAB7 PO (13:18)
[2017-11-28] MEDS ORDERED: ACET600C6 PO (13:18)
[2017-11-28 14:23] VITALS: BP 118/78
[2017-11-28 17:28] VITALS: BP 112/74
[2017-11-28 18:40] VITALS: BP 114/71
[2017-11-29 01:09] VITALS: BP 117/70
[2017-11-29 05:25] VITALS: BP 121/79
[2017-11-29] MEDS: CARVEDILOL 3.125 MG TABLET PO SCH (05:26)
[2017-11-29 06:56] VITALS: BP 120/76
[2017-11-29] MEDS: INSULIN LISPRO 100 UNITS/ML, PEN SQ-INSULIN SCH ×4 (07:00→20:46)
[2017-11-29] MEDS: POLYETHYLENE GLYCOL 17 GM PACKET PO SCH (09:35)
[2017-11-29] MEDS: SENNA/DOCUSATE TABLET PO SCH (09:35)
[2017-11-29] MEDS: ACETYLCYSTEINE 600 MG CAPSULE PO SCH ×2 (09:36→20:46)
[2017-11-29] MEDS: FUROSEMIDE 20 MG TABLET PO SCH ×2 (09:36→17:28)
[2017-11-29] MEDS: PANTOPRAZOLE 20MG TABLET PO SCH (09:36)
[2017-11-29] MEDS: TAMSULOSIN 0.4 MG CAP.ER.24H PO SCH (09:36)
[2017-11-29] MEDS: LACTOBACILLUS CHEW TABLET PO SCH ×3 (09:36→20:46)
[2017-11-29] MEDS: THIAMINE 100MG TABLET PO SCH (09:36)
[2017-11-29] MEDS: SODIUM CHLORIDE FLUSH 10ML SYR IVF SCH ×2 (09:37→20:47)
[2017-11-29 14:09] VITALS: BP 125/77
[2017-11-29] MEDS ORDERED: CARVEDILOL 3.125 MG TABLET PO ONE (14:30)
[2017-11-29 17:23] VITALS: BP 100/75
[2017-11-29] MEDS: CARVEDILOL 6.25 MG TABLET PO SCH (17:28)
[2017-11-29 20:04] VITALS: BP 97/62
[2017-11-30 02:36] VITALS: BP 108/70
[2017-11-30] MEDS: CARVEDILOL 6.25 MG TABLET PO SCH ×2 (05:28→17:35)
[2017-11-30] MEDS: INSULIN LISPRO 100 UNITS/ML, PEN SQ-INSULIN SCH ×4 (07:00→21:00)
[2017-11-30 07:20] VITALS: BP 92/64
[2017-11-30] MEDS: SODIUM CHLORIDE FLUSH 10ML SYR IVF SCH ×2 (09:00→21:28)
[2017-11-30] MEDS: POLYETHYLENE GLYCOL 17 GM PACKET PO SCH (09:00)
[2017-11-30] MEDS: SENNA/DOCUSATE TABLET PO SCH (09:00)
[2017-11-30] MEDS: PANTOPRAZOLE 20MG TABLET PO SCH (10:57)
[2017-11-30] MEDS: ACETYLCYSTEINE 600 MG CAPSULE PO SCH ×2 (10:57→21:27)
[2017-11-30] MEDS: TAMSULOSIN 0.4 MG CAP.ER.24H PO SCH (10:57)
[2017-11-30] MEDS: FUROSEMIDE 20 MG TABLET PO SCH ×2 (10:57→17:34)
[2017-11-30] MEDS: LACTOBACILLUS CHEW TABLET PO SCH (10:57)
[2017-11-30] MEDS: THIAMINE 100MG TABLET PO SCH (10:57)
[2017-11-30 13:56] VITALS: BP 104/68
[2017-11-30] MEDS: POTASSIUM CHLORIDE 20 MEQ TAB.ER.PRT PO SCH (17:34)
[2017-11-30 19:21] VITALS: BP 129/67
[2017-12-01 01:56] VITALS: BP 117/71
[2017-12-01] MEDS: CARVEDILOL 6.25 MG TABLET PO SCH ×2 (05:45→18:05)
[2017-12-01 05:47] LABS: CHLORIDE 102 mmol/L (98-107)
[2017-12-01 05:58] LABS: ANION GAP 7 mmol/L (5-15); CALCIUM 10.2 mg/dL (8.5-10.1); CREATININE 1.01 mg/dL (0.7-1.3)
[2017-12-01 06:25] LABS: MEAN CORPUSCULAR HEMOGLOBIN 36.3 pg (27.5-34.5); MEAN CORPUSCULAR HGB CONC 33.5 g/dL (33.2-36.2); MEAN CORPUSCULAR VOLUME 108.1 fL (81-97); MEAN PLATELET VOLUME 12.8 fL (7.4-10.4); PLATELET COUNT 72 x10^3/uL (130-400); RED BLOOD COUNT 2.85 x10^6/uL (4.38-5.82); RED CELL DISTRIBUTION WIDTH 16.9 % (9.4-14.8)
[2017-12-01 06:27] LABS: BASOPHILS # (AUTO) 0.07 x10^3/uL (0-0.1); BASOPHILS % (AUTO) 1 % (0-1); EOSINOPHILS # (AUTO) 0.17 x10^3/uL (0-0.4); EOSINOPHILS % (AUTO) 3 % (1-7); LYMPHOCYTES # (AUTO) 1.11 x10^3/uL (1-3.4); LYMPHOCYTES % (AUTO) 19 % (22-44); MD SCAN; MONOCYTES # (AUTO) 0.49 x10^3/uL (0.2-0.8); MONOCYTES % (AUTO) 8 % (2-9); NEUTROPHILS # (AUTO) 4.04 x10^3/uL (1.8-6.8); NEUTROPHILS % (AUTO) 69 % (42-75)
[2017-12-01 07:11] VITALS: BP 115/72
[2017-12-01] MEDS: INSULIN LISPRO 100 UNITS/ML, PEN SQ-INSULIN SCH ×4 (07:56→21:04)
[2017-12-01] MEDS: ACETAMINOPHEN 325 MG TABLET PO PRN (07:57)
[2017-12-01] MEDS: TAMSULOSIN 0.4 MG CAP.ER.24H PO SCH (07:57)
[2017-12-01] MEDS: PANTOPRAZOLE 20MG TABLET PO SCH (07:57)
[2017-12-01] MEDS: LISINOPRIL 5 MG TABLET PO SCH (07:57)
[2017-12-01] MEDS: FUROSEMIDE 20 MG TABLET PO SCH ×2 (07:58→18:06)
[2017-12-01] MEDS: SENNA/DOCUSATE TABLET PO SCH (10:08)
[2017-12-01] MEDS: ACETYLCYSTEINE 600 MG CAPSULE PO SCH ×2 (10:08→21:04)
[2017-12-01] MEDS: THIAMINE 100MG TABLET PO SCH (10:08)
[2017-12-01] MEDS: POTASSIUM CHLORIDE 20 MEQ TAB.ER.PRT PO SCH (10:09)
[2017-12-01] MEDS: POLYETHYLENE GLYCOL 17 GM PACKET PO SCH (10:09)
[2017-12-01] MEDS: SODIUM CHLORIDE FLUSH 10ML SYR IVF SCH ×2 (10:10→21:05)
[2017-12-01 13:30] VITALS: BP 95/57
[2017-12-01 17:59] VITALS: BP 145/58
[2017-12-01 18:56] VITALS: BP 101/64
[2017-12-02 01:44] VITALS: BP 90/58
[2017-12-02 05:20] VITALS: BP 99/63
[2017-12-02 08:00] VITALS: BP 93/58
[2017-12-02] MEDS: INSULIN LISPRO 100 UNITS/ML, PEN SQ-INSULIN SCH ×4 (08:23→20:38)
[2017-12-02] MEDS: THIAMINE 100MG TABLET PO SCH (08:37)
[2017-12-02] MEDS: TAMSULOSIN 0.4 MG CAP.ER.24H PO SCH (08:37)
[2017-12-02] MEDS: FUROSEMIDE 20 MG TABLET PO SCH ×2 (08:38→18:19)
[2017-12-02] MEDS: PANTOPRAZOLE 20MG TABLET PO SCH (08:38)
[2017-12-02] MEDS: ACETYLCYSTEINE 600 MG CAPSULE PO SCH ×2 (08:38→20:38)
[2017-12-02] MEDS: POTASSIUM CHLORIDE 20 MEQ TAB.ER.PRT PO SCH (08:38)
[2017-12-02] MEDS: LISINOPRIL 5 MG TABLET PO SCH (08:38)
[2017-12-02] MEDS: SODIUM CHLORIDE FLUSH 10ML SYR IVF SCH ×2 (08:39→20:38)
[2017-12-02] MEDS: POLYETHYLENE GLYCOL 17 GM PACKET PO SCH (08:39)
[2017-12-02] MEDS: SENNA/DOCUSATE TABLET PO SCH (08:40)
[2017-12-02 12:06] VITALS: BP 86/59
[2017-12-02 13:24] VITALS: BP 96/62
[2017-12-02 20:00] VITALS: BP 117/75
[2017-12-03 02:00] VITALS: BP 127/76
[2017-12-03 05:32] LABS: ANION GAP 6 mmol/L (5-15); CALCIUM 9.5 mg/dL (8.5-10.1); CHLORIDE 104 mmol/L (98-107); CREATININE 1.13 mg/dL (0.7-1.3)
[2017-12-03 06:47] LABS: MEAN CORPUSCULAR HEMOGLOBIN 35.9 pg (27.5-34.5); MEAN CORPUSCULAR HGB CONC 33.2 g/dL (33.2-36.2); MEAN CORPUSCULAR VOLUME 108.2 fL (81-97); RED BLOOD COUNT 3.01 x10^6/uL (4.38-5.82); RED CELL DISTRIBUTION WIDTH 17.1 % (9.4-14.8)
[2017-12-03] MEDS: INSULIN LISPRO 100 UNITS/ML, PEN SQ-INSULIN SCH ×4 (07:00→21:00)
[2017-12-03 07:36] LABS: BASOPHILS # (AUTO) 0.04 x10^3/uL (0-0.1); BASOPHILS % (AUTO) 1 % (0-1); EOSINOPHILS # (AUTO) 0.18 x10^3/uL (0-0.4); EOSINOPHILS % (AUTO) 3 % (1-7); LYMPHOCYTES # (AUTO) 1.28 x10^3/uL (1-3.4); LYMPHOCYTES % (AUTO) 23 % (22-44); MD SCAN; MEAN PLATELET VOLUME 12.2 fL (7.4-10.4); MONOCYTES # (AUTO) 0.38 x10^3/uL (0.2-0.8); MONOCYTES % (AUTO) 7 % (2-9); NEUTROPHILS # (AUTO) 3.81 x10^3/uL (1.8-6.8); NEUTROPHILS % (AUTO) 67 % (42-75); PLATELET COUNT 85 x10^3/uL (130-400)
[2017-12-03 07:40] VITALS: BP 104/63
[2017-12-03] MEDS: LISINOPRIL 5 MG TABLET PO SCH (09:00)
[2017-12-03] MEDS: FUROSEMIDE 20 MG TABLET PO SCH ×2 (09:15→17:35)
[2017-12-03] MEDS: THIAMINE 100MG TABLET PO SCH (09:15)
[2017-12-03] MEDS: POTASSIUM CHLORIDE 20 MEQ TAB.ER.PRT PO SCH (09:15)
[2017-12-03] MEDS: POLYETHYLENE GLYCOL 17 GM PACKET PO SCH (09:15)
[2017-12-03] MEDS: TAMSULOSIN 0.4 MG CAP.ER.24H PO SCH (09:15)
[2017-12-03] MEDS: SENNA/DOCUSATE TABLET PO SCH (09:15)
[2017-12-03] MEDS: ACETYLCYSTEINE 600 MG CAPSULE PO SCH ×2 (09:16→21:14)
[2017-12-03] MEDS: PANTOPRAZOLE 20MG TABLET PO SCH (09:16)
[2017-12-03] MEDS: SODIUM CHLORIDE FLUSH 10ML SYR IVF SCH ×2 (09:18→21:15)
[2017-12-03 13:08] VITALS: BP 94/64
[2017-12-03 16:50] VITALS: BP 91/54
[2017-12-03 20:00] VITALS: BP 107/69
[2017-12-04] VITALS (8 sets, daily range): BP systolic 93–113; BP diastolic 40–76
[2017-12-04] MEDS ORDERED: CARVEDILOL 3.125 MG TABLET PO SCH ×2 (01:00→18:00)
[2017-12-04] MEDS: CARVEDILOL 3.125 MG TABLET PO SCH ×3 (01:00→18:09)
[2017-12-04] MEDS: INSULIN LISPRO 100 UNITS/ML, PEN SQ-INSULIN SCH ×4 (07:00→20:47)
[2017-12-04] MEDS: LISINOPRIL 5 MG TABLET PO SCH (08:19)
[2017-12-04] MEDS: ACETYLCYSTEINE 600 MG CAPSULE PO SCH ×2 (08:34→20:46)
[2017-12-04] MEDS: SENNA/DOCUSATE TABLET PO SCH (08:34)
[2017-12-04] MEDS: POTASSIUM CHLORIDE 20 MEQ TAB.ER.PRT PO SCH (08:35)
[2017-12-04] MEDS: FUROSEMIDE 20 MG TABLET PO SCH ×2 (08:35→18:10)
[2017-12-04] MEDS: POLYETHYLENE GLYCOL 17 GM PACKET PO SCH (08:35)
[2017-12-04] MEDS: PANTOPRAZOLE 20MG TABLET PO SCH (08:35)
[2017-12-04] MEDS: TAMSULOSIN 0.4 MG CAP.ER.24H PO SCH (08:35)
[2017-12-04] MEDS: THIAMINE 100MG TABLET PO SCH (08:35)
[2017-12-04] MEDS: SODIUM CHLORIDE FLUSH 10ML SYR IVF SCH ×2 (08:35→20:52)
[2017-12-04] MEDS ORDERED: CATHFLO-ALTEPLASE 2 MG/2 ML CATHFLUSH ONE ×2 (12:00)
[2017-12-04 21:22] LABS: MICROSCOPIC INDICATED
[2017-12-05] VITALS (7 sets, daily range): BP systolic 95–116; BP diastolic 64–80
[2017-12-05] MEDS: CARVEDILOL 3.125 MG TABLET PO SCH ×2 (05:55→17:47)
[2017-12-05] MEDS: INSULIN LISPRO 100 UNITS/ML, PEN SQ-INSULIN SCH ×4 (07:00→21:00)
[2017-12-05] MEDS: ENOXAPARIN 40 MG/0.4 ML SQ SCH (08:42)
[2017-12-05] MEDS: PANTOPRAZOLE 20MG TABLET PO SCH (08:43)
[2017-12-05] MEDS: POLYETHYLENE GLYCOL 17 GM PACKET PO SCH (08:43)
[2017-12-05] MEDS: FUROSEMIDE 20 MG TABLET PO SCH ×3 (08:43→21:54)
[2017-12-05] MEDS: ACETYLCYSTEINE 600 MG CAPSULE PO SCH ×2 (08:43→21:53)
[2017-12-05] MEDS: TAMSULOSIN 0.4 MG CAP.ER.24H PO SCH (08:44)
[2017-12-05] MEDS: THIAMINE 100MG TABLET PO SCH (08:44)
[2017-12-05] MEDS: ASPIRIN 81 MG TABLET EC PO SCH (08:44)
[2017-12-05] MEDS: SULFAMETH./TRIMETHOPRIM DS 800MG/160MG TABLET PO SCH ×2 (08:45→21:54)
[2017-12-05] MEDS: POTASSIUM CHLORIDE 20 MEQ TAB.ER.PRT PO SCH (08:45)
[2017-12-05] MEDS: LISINOPRIL 5 MG TABLET PO SCH (08:45)
[2017-12-05] MEDS: SODIUM CHLORIDE FLUSH 10ML SYR IVF SCH ×2 (08:46→21:00)
[2017-12-05] MEDS: SENNA/DOCUSATE TABLET PO SCH (09:17)
[2017-12-06 05:43] VITALS: BP 96/63
[2017-12-06] MEDS: CARVEDILOL 3.125 MG TABLET PO SCH ×3 (05:44→18:25)
[2017-12-06] MEDS: INSULIN LISPRO 100 UNITS/ML, PEN SQ-INSULIN SCH ×4 (07:00→21:25)
[2017-12-06 07:18] VITALS: BP 116/71
[2017-12-06] MEDS: SULFAMETH./TRIMETHOPRIM DS 800MG/160MG TABLET PO SCH ×2 (08:28→21:24)
[2017-12-06] MEDS: LISINOPRIL 5 MG TABLET PO SCH (08:28)
[2017-12-06] MEDS: ASPIRIN 81 MG TABLET EC PO SCH (08:28)
[2017-12-06] MEDS: TAMSULOSIN 0.4 MG CAP.ER.24H PO SCH (08:28)
[2017-12-06] MEDS: POTASSIUM CHLORIDE 20 MEQ TAB.ER.PRT PO SCH (08:28)
[2017-12-06] MEDS: ACETYLCYSTEINE 600 MG CAPSULE PO SCH ×2 (08:28→21:24)
[2017-12-06] MEDS: THIAMINE 100MG TABLET PO SCH (08:29)
[2017-12-06] MEDS: PANTOPRAZOLE 20MG TABLET PO SCH (08:29)
[2017-12-06] MEDS: SENNA/DOCUSATE TABLET PO SCH (08:29)
[2017-12-06] MEDS: ENOXAPARIN 40 MG/0.4 ML SQ SCH (08:30)
[2017-12-06] MEDS: FUROSEMIDE 20 MG TABLET PO SCH ×3 (08:30→21:24)
[2017-12-06] MEDS: POLYETHYLENE GLYCOL 17 GM PACKET PO SCH (08:41)
[2017-12-06] MEDS: SODIUM CHLORIDE FLUSH 10ML SYR IVF SCH ×2 (08:41→21:24)
[2017-12-06 13:01] VITALS: BP 94/59
[2017-12-06 18:24] VITALS: BP 107/62
[2017-12-06 19:01] VITALS: BP 113/67
[2017-12-07 00:55] VITALS: BP 110/73
[2017-12-07 05:40] LABS: CREATININE 1.22 mg/dL (0.7-1.3)
[2017-12-07 06:11] VITALS: BP 90/56
[2017-12-07] MEDS: CARVEDILOL 3.125 MG TABLET PO SCH ×2 (06:14→09:08)
[2017-12-07] MEDS: INSULIN LISPRO 100 UNITS/ML, PEN SQ-INSULIN SCH ×4 (07:00→21:00)
[2017-12-07 08:48] VITALS: BP 85/51
[2017-12-07] MEDS: LISINOPRIL 5 MG TABLET PO SCH (09:00)
[2017-12-07] MEDS: ENOXAPARIN 40 MG/0.4 ML SQ SCH (09:02)
[2017-12-07] MEDS: SODIUM CHLORIDE FLUSH 10ML SYR IVF SCH ×2 (09:02→21:00)
[2017-12-07] MEDS: POLYETHYLENE GLYCOL 17 GM PACKET PO SCH (09:02)
[2017-12-07] MEDS: ACETYLCYSTEINE 600 MG CAPSULE PO SCH (09:02)
[2017-12-07] MEDS: SENNA/DOCUSATE TABLET PO SCH (09:03)
[2017-12-07] MEDS: TAMSULOSIN 0.4 MG CAP.ER.24H PO SCH (09:03)
[2017-12-07] MEDS: POTASSIUM CHLORIDE 20 MEQ TAB.ER.PRT PO SCH (09:04)
[2017-12-07] MEDS: THIAMINE 100MG TABLET PO SCH (09:04)
[2017-12-07] MEDS: PANTOPRAZOLE 20MG TABLET PO SCH (09:04)
[2017-12-07] MEDS: SULFAMETH./TRIMETHOPRIM DS 800MG/160MG TABLET PO SCH ×2 (09:04→21:00)
[2017-12-07] MEDS: ASPIRIN 81 MG TABLET EC PO SCH (09:04)
[2017-12-07] MEDS: FUROSEMIDE 20 MG TABLET PO SCH ×3 (09:04→21:00)
[2017-12-07] MEDS: GUAIFENESIN 200 MG TABLET PO SCH ×3 (11:00→21:00)
[2017-12-07 17:08] VITALS: BP 91/57
[2017-12-07 19:28] VITALS: BP 108/67
[2017-12-08 01:33] VITALS: BP 102/69
[2017-12-08] MEDS: GUAIFENESIN 200 MG TABLET PO SCH ×4 (06:00→21:00)
[2017-12-08] MEDS: INSULIN LISPRO 100 UNITS/ML, PEN SQ-INSULIN SCH ×4 (07:00→21:00)
[2017-12-08 07:56] VITALS: BP 108/74
[2017-12-08] MEDS: CARVEDILOL 3.125 MG TABLET PO SCH (08:00)
[2017-12-08] MEDS: POLYETHYLENE GLYCOL 17 GM PACKET PO SCH (08:24)
[2017-12-08] MEDS: ENOXAPARIN 40 MG/0.4 ML SQ SCH (08:25)
[2017-12-08] MEDS: SENNA/DOCUSATE TABLET PO SCH (08:25)
[2017-12-08] MEDS: SULFAMETH./TRIMETHOPRIM DS 800MG/160MG TABLET PO SCH ×2 (08:26→20:40)
[2017-12-08] MEDS: PANTOPRAZOLE 20MG TABLET PO SCH (08:26)
[2017-12-08] MEDS: THIAMINE 100MG TABLET PO SCH (08:26)
[2017-12-08] MEDS: POTASSIUM CHLORIDE 20 MEQ TAB.ER.PRT PO SCH (08:26)
[2017-12-08] MEDS: FUROSEMIDE 20 MG TABLET PO SCH ×3 (08:26→20:40)
[2017-12-08] MEDS: TAMSULOSIN 0.4 MG CAP.ER.24H PO SCH (08:26)
[2017-12-08] MEDS: ASPIRIN 81 MG TABLET EC PO SCH (08:26)
[2017-12-08] MEDS: SODIUM CHLORIDE FLUSH 10ML SYR IVF SCH ×2 (08:26→21:00)
[2017-12-08 08:41] LABS: ALANINE AMINOTRANSFERASE 30 U/L (12-78); ALBUMIN 2.7 g/dL (3.4-5.0); ANION GAP 8 mmol/L (5-15); CALCIUM 9.7 mg/dL (8.5-10.1); CHLORIDE 102 mmol/L (98-107); CREATININE 1.15 mg/dL (0.7-1.3)
[2017-12-08 08:43] LABS: MEAN CORPUSCULAR HEMOGLOBIN 35.6 pg (27.5-34.5); MEAN CORPUSCULAR HGB CONC 33.3 g/dL (33.2-36.2); MEAN CORPUSCULAR VOLUME 107.1 fL (81-97); MEAN PLATELET VOLUME 12.1 fL (7.4-10.4); PLATELET COUNT 81 x10^3/uL (130-400); RED BLOOD COUNT 3.11 x10^6/uL (4.38-5.82)
[2017-12-08 08:44] LABS: ALKALINE PHOSPHATASE 106 U/L (45-117); BILIRUBIN,TOTAL 1.1 mg/dL (0.2-1.0)
[2017-12-08 08:45] LABS: BASOPHILS # (AUTO) 0.02 x10^3/uL (0-0.1); BASOPHILS % (AUTO) 1 % (0-1); EOSINOPHILS # (AUTO) 0.12 x10^3/uL (0-0.4); EOSINOPHILS % (AUTO) 4 % (1-7); LYMPHOCYTES # (AUTO) 0.87 x10^3/uL (1-3.4); LYMPHOCYTES % (AUTO) 26 % (22-44); MD SCAN; MONOCYTES # (AUTO) 0.38 x10^3/uL (0.2-0.8); MONOCYTES % (AUTO) 11 % (2-9); NEUTROPHILS % (AUTO) 59 % (42-75)
[2017-12-08 15:00] VITALS: BP 93/59
[2017-12-08 19:36] VITALS: BP 112/69
[2017-12-09 03:21] VITALS: BP 95/65
[2017-12-09] MEDS: GUAIFENESIN 200 MG TABLET PO SCH ×4 (05:58→21:00)
[2017-12-09] MEDS: INSULIN LISPRO 100 UNITS/ML, PEN SQ-INSULIN SCH ×4 (07:00→20:53)
[2017-12-09 07:07] VITALS: BP 137/71
[2017-12-09] MEDS: POTASSIUM CHLORIDE 20 MEQ TAB.ER.PRT PO SCH (08:00)
[2017-12-09] MEDS: SODIUM CHLORIDE FLUSH 10ML SYR IVF SCH ×2 (09:00→20:51)
[2017-12-09] MEDS: POLYETHYLENE GLYCOL 17 GM PACKET PO SCH (09:00)
[2017-12-09] MEDS: ASPIRIN 81 MG TABLET EC PO SCH (09:51)
[2017-12-09] MEDS: FUROSEMIDE 20 MG TABLET PO SCH ×3 (09:51→20:52)
[2017-12-09] MEDS: ENOXAPARIN 40 MG/0.4 ML SQ SCH (09:51)
[2017-12-09] MEDS: SENNA/DOCUSATE TABLET PO SCH (09:52)
[2017-12-09] MEDS: PANTOPRAZOLE 20MG TABLET PO SCH (09:52)
[2017-12-09] MEDS: CIPROFLOXACIN 500 MG TABLET PO SCH ×2 (09:52→20:52)
[2017-12-09] MEDS: TAMSULOSIN 0.4 MG CAP.ER.24H PO SCH (09:57)
[2017-12-09] MEDS: THIAMINE 100MG TABLET PO SCH (09:57)
[2017-12-09 12:46] VITALS: BP 119/79
[2017-12-09 19:58] VITALS: BP 107/78
[2017-12-10 02:01] VITALS: BP 108/66
[2017-12-10] MEDS: GUAIFENESIN 200 MG TABLET PO SCH ×4 (05:39→20:24)
[2017-12-10 05:42] LABS: ALBUMIN 2.8 g/dL (3.4-5.0); ANION GAP 6 mmol/L (5-15); CALCIUM 9.7 mg/dL (8.5-10.1); CHLORIDE 103 mmol/L (98-107)
[2017-12-10 05:46] LABS: ALANINE AMINOTRANSFERASE 33 U/L (12-78); ALKALINE PHOSPHATASE 114 U/L (45-117); BILIRUBIN,TOTAL 1.1 mg/dL (0.2-1.0); CREATININE 1.29 mg/dL (0.7-1.3)
[2017-12-10] MEDS: INSULIN LISPRO 100 UNITS/ML, PEN SQ-INSULIN SCH ×4 (07:00→20:19)
[2017-12-10 07:13] LABS: MD YES; MEAN CORPUSCULAR HEMOGLOBIN 36.1 pg (27.5-34.5); MEAN CORPUSCULAR HGB CONC 33.5 g/dL (33.2-36.2); MEAN CORPUSCULAR VOLUME 108.1 fL (81-97); MEAN PLATELET VOLUME 12.3 fL (7.4-10.4); PLATELET COUNT 66 x10^3/uL (130-400); RED BLOOD COUNT 3.02 x10^6/uL (4.38-5.82)
[2017-12-10 07:20] LABS: ANISOCYTOSIS 1+; BAND#(MANUAL) 0.08 x10^3/uL; BANDS%(MANUAL) 2 % (0-7); EOS#(MANUAL) 0.08 x10^3/uL (0.0-0.4); EOS% (MANUAL) 2 % (1-7); LYMPH#(MANUAL) 0.74 x10^3/uL (1-3.4); LYMPHS% (MANUAL) 19 % (22-44); MONOS#(MANUAL) 0.55 x10^3/uL (0.3-2.7); MONOS% (MANUAL) 14 % (2-9); SEG#(MANUAL) 2.46 x10^3/uL (1.8-6.8); SEGS% (MANUAL) 63 % (42-75)
[2017-12-10 07:21] LABS: <PLATELET ESTIMATE> DECREASED; LARGE PLATELETS 1+; OVALOCYTES 1+
[2017-12-10 07:53] VITALS: BP 109/77
[2017-12-10] MEDS: SODIUM CHLORIDE FLUSH 10ML SYR IVF SCH ×2 (09:00→20:18)
[2017-12-10] MEDS: POLYETHYLENE GLYCOL 17 GM PACKET PO SCH (09:00)
[2017-12-10] MEDS: SENNA/DOCUSATE TABLET PO SCH (09:14)
[2017-12-10] MEDS: CIPROFLOXACIN 500 MG TABLET PO SCH ×2 (09:14→20:18)
[2017-12-10] MEDS: ENOXAPARIN 40 MG/0.4 ML SQ SCH (09:14)
[2017-12-10] MEDS: ASPIRIN 81 MG TABLET EC PO SCH (09:14)
[2017-12-10] MEDS: PANTOPRAZOLE 20MG TABLET PO SCH (09:14)
[2017-12-10] MEDS: FUROSEMIDE 20 MG TABLET PO SCH ×3 (09:14→20:18)
[2017-12-10] MEDS: THIAMINE 100MG TABLET PO SCH (09:14)
[2017-12-10] MEDS: TAMSULOSIN 0.4 MG CAP.ER.24H PO SCH (09:14)
[2017-12-10 12:08] VITALS: BP 95/61
[2017-12-10 20:16] VITALS: BP 106/76
[2017-12-11 00:31] VITALS: BP 105/65
[2017-12-11] MEDS: GUAIFENESIN 200 MG TABLET PO SCH ×4 (05:46→20:52)
[2017-12-11 06:55] VITALS: BP 92/58
[2017-12-11] MEDS: INSULIN LISPRO 100 UNITS/ML, PEN SQ-INSULIN SCH ×4 (07:00→20:53)
[2017-12-11] MEDS: POLYETHYLENE GLYCOL 17 GM PACKET PO SCH (07:59)
[2017-12-11] MEDS: FUROSEMIDE 20 MG TABLET PO SCH ×3 (08:13→20:52)
[2017-12-11] MEDS: THIAMINE 100MG TABLET PO SCH (08:14)
[2017-12-11] MEDS: SENNA/DOCUSATE TABLET PO SCH (08:14)
[2017-12-11] MEDS: ASPIRIN 81 MG TABLET EC PO SCH (08:14)
[2017-12-11] MEDS: CIPROFLOXACIN 500 MG TABLET PO SCH ×2 (08:14→20:52)
[2017-12-11] MEDS: ENOXAPARIN 40 MG/0.4 ML SQ SCH (08:14)
[2017-12-11] MEDS: PANTOPRAZOLE 20MG TABLET PO SCH (08:14)
[2017-12-11] MEDS: TAMSULOSIN 0.4 MG CAP.ER.24H PO SCH (08:14)
[2017-12-11] MEDS: SODIUM CHLORIDE FLUSH 10ML SYR IVF SCH ×2 (08:17→20:52)
[2017-12-11 12:13] VITALS: BP 137/74
[2017-12-11 19:03] VITALS: BP 108/68
[2017-12-12 02:20] VITALS: BP 148/75
[2017-12-12] MEDS: GUAIFENESIN 200 MG TABLET PO SCH ×5 (05:39→21:34)
[2017-12-12 06:55] VITALS: BP 103/72
[2017-12-12] MEDS: INSULIN LISPRO 100 UNITS/ML, PEN SQ-INSULIN SCH ×4 (07:00→21:00)
[2017-12-12] MEDS: ENOXAPARIN 40 MG/0.4 ML SQ SCH ×2 (08:00→08:21)
[2017-12-12] MEDS: POLYETHYLENE GLYCOL 17 GM PACKET PO SCH (08:08)
[2017-12-12] MEDS: FUROSEMIDE 20 MG TABLET PO SCH ×3 (08:21→21:34)
[2017-12-12] MEDS: TAMSULOSIN 0.4 MG CAP.ER.24H PO SCH (08:22)
[2017-12-12] MEDS: CIPROFLOXACIN 500 MG TABLET PO SCH ×2 (08:22→21:34)
[2017-12-12] MEDS: THIAMINE 100MG TABLET PO SCH (08:22)
[2017-12-12] MEDS: PANTOPRAZOLE 20MG TABLET PO SCH (08:22)
[2017-12-12] MEDS: ASPIRIN 81 MG TABLET EC PO SCH (08:22)
[2017-12-12] MEDS: SENNA/DOCUSATE TABLET PO SCH (08:22)
[2017-12-12] MEDS: SODIUM CHLORIDE FLUSH 10ML SYR IVF SCH ×2 (08:23→21:34)
[2017-12-12 11:09] LABS: MEAN CORPUSCULAR HGB CONC 32.5 g/dL (33.2-36.2); MEAN CORPUSCULAR VOLUME 107.8 fL (81-97); RED BLOOD COUNT 2.98 x10^6/uL (4.38-5.82); RED CELL DISTRIBUTION WIDTH 17.4 % (9.4-14.8)
[2017-12-12 11:25] LABS: MEAN PLATELET VOLUME 12.9 fL (7.4-10.4); PLATELET COUNT 75 x10^3/uL (130-400)
[2017-12-12 11:26] LABS: BASOPHILS # (AUTO) 0.01 x10^3/uL (0-0.1); BASOPHILS % (AUTO) 0 % (0-1); EOSINOPHILS # (AUTO) 0.08 x10^3/uL (0-0.4); EOSINOPHILS % (AUTO) 2 % (1-7); LYMPHOCYTES # (AUTO) 0.69 x10^3/uL (1-3.4); LYMPHOCYTES % (AUTO) 15 % (22-44); MD SCAN; MONOCYTES # (AUTO) 0.48 x10^3/uL (0.2-0.8); MONOCYTES % (AUTO) 11 % (2-9); NEUTROPHILS # (AUTO) 3.22 x10^3/uL (1.8-6.8); NEUTROPHILS % (AUTO) 72 % (42-75)
[2017-12-12 12:26] VITALS: BP 105/77
[2017-12-12 20:00] VITALS: BP 115/72
[2017-12-13 02:00] VITALS: BP 102/73
[2017-12-13] MEDS: GUAIFENESIN 200 MG TABLET PO SCH ×2 (05:37→11:00)
[2017-12-13] MEDS: INSULIN LISPRO 100 UNITS/ML, PEN SQ-INSULIN SCH ×2 (07:00→11:00)
[2017-12-13 07:55] VITALS: BP 114/71
[2017-12-13] MEDS: SODIUM CHLORIDE FLUSH 10ML SYR IVF SCH (09:00)
[2017-12-13] MEDS: POLYETHYLENE GLYCOL 17 GM PACKET PO SCH (09:00)
[2017-12-13] MEDS: SENNA/DOCUSATE TABLET PO SCH (09:00)
[2017-12-13] MEDS: TAMSULOSIN 0.4 MG CAP.ER.24H PO SCH (09:38)
[2017-12-13] MEDS: FUROSEMIDE 20 MG TABLET PO SCH (09:38)
[2017-12-13] MEDS: CIPROFLOXACIN 500 MG TABLET PO SCH (09:38)
[2017-12-13] MEDS: PANTOPRAZOLE 20MG TABLET PO SCH (09:38)
[2017-12-13] MEDS: ASPIRIN 81 MG TABLET EC PO SCH (09:39)
[2017-12-13] MEDS: THIAMINE 100MG TABLET PO SCH (09:39)
[2017-12-13] MEDS ORDERED: POTA20PA31 PO (11:55)
== END 2017-12-13 13:35 | DRG 682 ==
LOC: 4EST 20:55 → 5SO 11-14 16:21 → CCU 11-18 09:26 → 5SO 11-22 13:45 → 4WST 11-29 23:07 → 4EST 11-29 23:16 → 4WST 11-30 18:38
PROVIDERS: ADMIT Hospitalist; ATTEND Hospitalist
DX: N17.9 Acute kidney failure, unspecified (principal); I50.23 Acute on chronic systolic (congestive) heart failure; D68.59 Other primary thrombophilia; E46 Unspecified protein-calorie malnutrition; Z68.41 Body mass index [BMI] 40.0-44.9, adult; I47.2 Ventricular tachycardia; N39.0 Urinary tract infection, site not specified; I25.5 Ischemic cardiomyopathy; N02.9 Recurrent and persistent hematuria with unspecified morphologic changes; E66.9 Obesity, unspecified; I27.20 Pulmonary hypertension, unspecified; D69.6 Thrombocytopenia, unspecified; E66.01 Morbid (severe) obesity due to excess calories; F03.90 Unspecified dementia, unspecified severity, without behavioral disturbance, psychotic disturbance, mood disturbance, and anxiety; B96.5 Pseudomonas (aeruginosa) (mallei) (pseudomallei) as the cause of diseases classified elsewhere; D53.9 Nutritional anemia, unspecified; D63.1 Anemia in chronic kidney disease; D75.89 Other specified diseases of blood and blood-forming organs; E11.22 Type 2 diabetes mellitus with diabetic chronic kidney disease; F17.210 Nicotine dependence, cigarettes, uncomplicated; F12.90 Cannabis use, unspecified, uncomplicated; I08.1 Rheumatic disorders of both mitral and tricuspid valves; Z51.5 Encounter for palliative care; I48.2 Chronic atrial fibrillation; K21.9 Gastro-esophageal reflux disease without esophagitis; K59.09 Other constipation; N18.9 Chronic kidney disease, unspecified; Y84.6 Urinary catheterization as the cause of abnormal reaction of the patient, or of later complication, without mention of misadventure at the time of the procedure; Z79.01 Long term (current) use of anticoagulants; Z82.3 Family history of stroke; Z86.19 Personal history of other infectious and parasitic diseases; Z91.19 Patient's noncompliance with other medical treatment and regimen; Z91.81 History of falling; I95.9 Hypotension, unspecified
CPT/HCPCS: 36415; 36600; 71045; 76770; 80048; 80053; 80173; 81001; 82040; 82247; 82248; 82274; 82533; 82550; 82565; 82607; 82746; 82803; 82962; 83036; 83540; 83550; 83615; 83735; 84300; 84439; 84443; 84484; 85025; 85520; 85610; 86022; 87077; 87081; 87086; 87186; 93005; 93970; G0378; J1644; J1650; J1940; J2997; J3475; J1160; J1250; J1630; J1815; J7050